=== PATIENT | female | born 1975 | race Caucasian/White ===

== ENCOUNTER 2016-01-18 15:16 | Inpatient (IN) | payer OTHER ==
[2016-01-18] MEDS ORDERED: PNEUMOC 13-VAL CONJ-DIP CRM/PF 0.5 ML DISP.SYRIN IM ONE (15:30)
--- NOTE | 2016-01-18 16:18 | HP ---
[facility] Rehab Assess/Revision - Admission History Admitted to Rehab from: [facility] [place] Date of Admission to Rehab: 01/18/16 - Vital signs Vital Signs: Vital Signs Period Temp Pulse Resp BP Sys/Crow Pulse Ox Last 24 Hr 98 F 83 - Findings Detox History & Physical reviewed: Yes Concur with findings: Yes Comments/Additional Findings: transferred from detox to rehab admission as per protocol
[2016-01-18] MEDS ORDERED: ACETAMINOPHEN 325 MG TABLET (FP) PO PRN (20:55)
[2016-01-18] MEDS ORDERED: ALBUTEROL SO4 6.7 GM HFA INHALER IH PRN (20:55)
[2016-01-18] MEDS ORDERED: guaiFENesin/D-METHORPHAN HB 10 ML UNIT-DOSE CUPS PO PRN (20:55)
[2016-01-18] MEDS ORDERED: MENTHOL/PHENOL 1 EACH UD MM PRN (20:55)
[2016-01-18] MEDS ORDERED: MAG HYDROX/AL HYDROX/SIMETH 30 ML UNIT-DOSE CUP PO PRN (20:55)
[2016-01-18] MEDS ORDERED: LOPERAMIDE HCL 2 MG CAPSULE PO PRN (20:55)
[2016-01-18] MEDS ORDERED: MAGNESIUM CITRATE 300 ML BOTTLE PO PRN (20:55)
[2016-01-18] MEDS ORDERED: P-EPHED 60MG/TRIPROLIDI 2.5MG TABLET PO PRN (20:55)
[2016-01-18] MEDS ORDERED: MAGNESIUM HYDROX 2400MG/30ML ORAL SUSPENSION 30 ML CUP PO PRN (20:55)
[2016-01-18] MEDS: traZODone HCL 50 MG TABLET (FP) PO SCH (21:47)
[2016-01-18] MEDS: ARIPiprazole 5 MG TABLET (FP) PO SCH (21:47)
[2016-01-18] MEDS: QUEtiapine FUMARATE 200 MG TABLET PO SCH (21:48)
[2016-01-18] MEDS ORDERED: SULFAMETHOXAZOLE/TRIMETHOPRIM 800MG/160MG D.S. TABLET PO SCH (22:00)
[2016-01-18] MEDS: SULFAMETHOXAZOLE/TRIMETHOPRIM 800MG/160MG D.S. TABLET PO SCH (22:32)
[2016-01-18] MEDS: THIAMINE HCL 100 MG TABLET (FP) PO SCH (22:38)
[2016-01-19] MEDS ORDERED: METHADONE HCL 10 MG TABLET PO SCH (06:00)
[2016-01-19] MEDS: METHADONE 80 MG, METHADONE 20 MG PO SCH (06:19)
[2016-01-19] MEDS ORDERED: METHADONE HCL 10 MG TABLET ONE (06:19)
[2016-01-19] MEDS ORDERED: METHADONE HCL 40 MG DISPERSABLE TABLET ONE (06:19)
[2016-01-19] MEDS: QUEtiapine FUMARATE 200 MG TABLET PO SCH ×2 (10:14→21:29)
[2016-01-19] MEDS: PRENATAL VITAMINS W/ FOLIC ACID TABLET (FP) PO SCH (10:14)
[2016-01-19] MEDS: SULFAMETHOXAZOLE/TRIMETHOPRIM 800MG/160MG D.S. TABLET PO SCH ×2 (10:14→21:29)
[2016-01-19] MEDS ORDERED: SODIUM PHOSPHATE/NA BIPHOS 133 ML ENEMA PR ONE (11:26)
[2016-01-19] MEDS ORDERED: INFLUENZA VACCINE 45 MCG/0.5 ML (MDV 16-17) IM ONE (12:00)
[2016-01-19] MEDS ORDERED: PNEUMOCOCCAL 23 VACCINE 0.5 ML VIAL IM ONE (12:00)
[2016-01-19] MEDS: DOCUSATE SODIUM 100 MG CAPSULE (FP) PO SCH ×2 (13:09→21:29)
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
[2016-01-19] MEDS: CYCLOBENZAPRINE HCL 10 MG TABLET (FP) PO PRN (15:52)
[2016-01-19] MEDS: hydrOXYzine PAMOATE 50 MG CAPSULE (FP) PO PRN (15:52)
[2016-01-19] MEDS: THIAMINE HCL 100 MG TABLET (FP) PO SCH (21:29)
[2016-01-19] MEDS: traZODone HCL 50 MG TABLET (FP) PO SCH (21:29)
[2016-01-19] MEDS: ARIPiprazole 5 MG TABLET (FP) PO SCH (21:29)
[2016-01-20] MEDS ORDERED: METHADONE HCL 10 MG TABLET ONE (03:12)
[2016-01-20] MEDS ORDERED: METHADONE HCL 40 MG DISPERSABLE TABLET ONE (03:12)
[2016-01-20] MEDS: METHADONE 80 MG, METHADONE 20 MG PO SCH (06:24)
[2016-01-20] MEDS: DOCUSATE SODIUM 100 MG CAPSULE (FP) PO SCH ×3 (06:25→21:18)
[2016-01-20] MEDS: IBUPROFEN 400 MG TABLET (FP) PO PRN (08:44)
[2016-01-20] MEDS: CYCLOBENZAPRINE HCL 10 MG TABLET (FP) PO PRN ×2 (08:44→21:20)
[2016-01-20] MEDS: PRENATAL VITAMINS W/ FOLIC ACID TABLET (FP) PO SCH (10:01)
[2016-01-20] MEDS: QUEtiapine FUMARATE 200 MG TABLET PO SCH ×2 (10:01→21:18)
[2016-01-20] MEDS: SULFAMETHOXAZOLE/TRIMETHOPRIM 800MG/160MG D.S. TABLET PO SCH ×2 (10:02→21:18)
[2016-01-20] MEDS: hydrOXYzine PAMOATE 50 MG CAPSULE (FP) PO PRN (10:03)
--- NOTE | 2016-01-20 11:44 | PN ---
[facility] Progress Note Note: pain over the left shoulder at the site of flu injection,no erythema,ice pack, motrin and flexeril prn
[2016-01-20] MEDS: traZODone HCL 50 MG TABLET (FP) PO SCH (21:18)
[2016-01-20] MEDS: THIAMINE HCL 100 MG TABLET (FP) PO SCH (21:18)
[2016-01-20] MEDS: ARIPiprazole 5 MG TABLET (FP) PO SCH (21:19)
[2016-01-21] MEDS ORDERED: METHADONE HCL 40 MG DISPERSABLE TABLET ONE (05:57)
[2016-01-21] MEDS ORDERED: METHADONE HCL 10 MG TABLET ONE (05:57)
[2016-01-21] MEDS: DOCUSATE SODIUM 100 MG CAPSULE (FP) PO SCH ×3 (06:04→21:18)
[2016-01-21] MEDS: METHADONE 80 MG, METHADONE 20 MG PO SCH (06:04)
[2016-01-21] MEDS: QUEtiapine FUMARATE 200 MG TABLET PO SCH ×2 (10:13→21:18)
[2016-01-21] MEDS: PRENATAL VITAMINS W/ FOLIC ACID TABLET (FP) PO SCH (10:13)
[2016-01-21] MEDS: SULFAMETHOXAZOLE/TRIMETHOPRIM 800MG/160MG D.S. TABLET PO SCH ×2 (10:13→21:18)
[2016-01-21] MEDS: hydrOXYzine PAMOATE 50 MG CAPSULE (FP) PO PRN (10:15)
[2016-01-21] MEDS: CYCLOBENZAPRINE HCL 10 MG TABLET (FP) PO PRN (10:15)
[2016-01-21] MEDS: NICOTINE 14 MG/24 HOURS TOPICAL PATCH TD PRN (10:17)
[2016-01-21] MEDS: IBUPROFEN 400 MG TABLET (FP) PO PRN (13:13)
[2016-01-21] MEDS: traZODone HCL 50 MG TABLET (FP) PO SCH (21:18)
[2016-01-21] MEDS: THIAMINE HCL 100 MG TABLET (FP) PO SCH (21:18)
[2016-01-21] MEDS: ARIPiprazole 5 MG TABLET (FP) PO SCH (21:19)
[2016-01-22] MEDS ORDERED: METHADONE HCL 10 MG TABLET ONE (03:15)
[2016-01-22] MEDS ORDERED: METHADONE HCL 40 MG DISPERSABLE TABLET ONE (03:15)
[2016-01-22] MEDS: METHADONE 80 MG, METHADONE 20 MG PO SCH (06:36)
[2016-01-22] MEDS: DOCUSATE SODIUM 100 MG CAPSULE (FP) PO SCH ×3 (06:37→21:15)
[2016-01-22] MEDS: QUEtiapine FUMARATE 200 MG TABLET PO SCH ×2 (10:00→21:15)
[2016-01-22] MEDS: PRENATAL VITAMINS W/ FOLIC ACID TABLET (FP) PO SCH (10:00)
[2016-01-22] MEDS: SULFAMETHOXAZOLE/TRIMETHOPRIM 800MG/160MG D.S. TABLET PO SCH ×2 (10:00→21:15)
[2016-01-22] MEDS ORDERED: SODIUM PHOSPHATE/NA BIPHOS 133 ML ENEMA PR ONE (13:00)
[2016-01-22] MEDS: POLYETHYLENE GLYCOL 3350 119 GM BTL PO SCH (15:10)
[2016-01-22] MEDS: traZODone HCL 50 MG TABLET (FP) PO SCH (21:14)
[2016-01-22] MEDS: hydrOXYzine PAMOATE 50 MG CAPSULE (FP) PO PRN (21:15)
[2016-01-22] MEDS: THIAMINE HCL 100 MG TABLET (FP) PO SCH (21:15)
[2016-01-22] MEDS: CYCLOBENZAPRINE HCL 10 MG TABLET (FP) PO PRN (21:15)
[2016-01-22] MEDS: ARIPiprazole 5 MG TABLET (FP) PO SCH (21:15)
[2016-01-23] MEDS ORDERED: METHADONE HCL 10 MG TABLET ONE (03:21)
[2016-01-23] MEDS ORDERED: METHADONE HCL 40 MG DISPERSABLE TABLET ONE (03:21)
[2016-01-23] MEDS: METHADONE 80 MG, METHADONE 20 MG PO SCH (06:23)
[2016-01-23] MEDS: DOCUSATE SODIUM 100 MG CAPSULE (FP) PO SCH ×3 (06:24→21:08)
[2016-01-23] MEDS: CYCLOBENZAPRINE HCL 10 MG TABLET (FP) PO PRN (08:27)
[2016-01-23] MEDS: hydrOXYzine PAMOATE 50 MG CAPSULE (FP) PO PRN (08:27)
[2016-01-23] MEDS: SULFAMETHOXAZOLE/TRIMETHOPRIM 800MG/160MG D.S. TABLET PO SCH ×2 (10:01→21:08)
[2016-01-23] MEDS: PRENATAL VITAMINS W/ FOLIC ACID TABLET (FP) PO SCH (10:01)
[2016-01-23] MEDS: QUEtiapine FUMARATE 200 MG TABLET PO SCH ×2 (10:01→21:08)
[2016-01-23] MEDS: POLYETHYLENE GLYCOL 3350 119 GM BTL PO SCH (10:01)
[2016-01-23] MEDS: ARIPiprazole 5 MG TABLET (FP) PO SCH (21:07)
[2016-01-23] MEDS: THIAMINE HCL 100 MG TABLET (FP) PO SCH (21:08)
[2016-01-23] MEDS: traZODone HCL 50 MG TABLET (FP) PO SCH (21:08)
[2016-01-24] MEDS ORDERED: METHADONE HCL 10 MG TABLET ONE (03:13)
[2016-01-24] MEDS ORDERED: METHADONE HCL 40 MG DISPERSABLE TABLET ONE (03:14)
[2016-01-24] MEDS: METHADONE 80 MG, METHADONE 20 MG PO SCH (06:11)
[2016-01-24] MEDS: DOCUSATE SODIUM 100 MG CAPSULE (FP) PO SCH ×3 (06:12→21:24)
[2016-01-24] MEDS: QUEtiapine FUMARATE 200 MG TABLET PO SCH ×2 (10:13→21:23)
[2016-01-24] MEDS: POLYETHYLENE GLYCOL 3350 119 GM BTL PO SCH (10:13)
[2016-01-24] MEDS: SULFAMETHOXAZOLE/TRIMETHOPRIM 800MG/160MG D.S. TABLET PO SCH ×2 (10:13→21:23)
[2016-01-24] MEDS: PRENATAL VITAMINS W/ FOLIC ACID TABLET (FP) PO SCH (10:13)
[2016-01-24] MEDS: NICOTINE 14 MG/24 HOURS TOPICAL PATCH TD PRN (10:17)
[2016-01-24] MEDS: SODIUM PHOSPHATE/NA BIPHOS 133 ML ENEMA PR PRN (13:17)
[2016-01-24] MEDS: THIAMINE HCL 100 MG TABLET (FP) PO SCH (21:23)
[2016-01-24] MEDS: traZODone HCL 50 MG TABLET (FP) PO SCH (21:24)
[2016-01-24] MEDS: ARIPiprazole 5 MG TABLET (FP) PO SCH (21:25)
[2016-01-25] MEDS ORDERED: METHADONE HCL 40 MG DISPERSABLE TABLET PO SCH (06:15)
[2016-01-25] MEDS ORDERED: METHADONE HCL 10 MG TABLET ONE (06:23)
[2016-01-25] MEDS ORDERED: METHADONE HCL 40 MG DISPERSABLE TABLET ONE (06:24)
[2016-01-25] MEDS: METHADONE 80 MG, METHADONE 20 MG PO SCH (06:25)
[2016-01-25] MEDS: DOCUSATE SODIUM 100 MG CAPSULE (FP) PO SCH ×3 (06:28→21:16)
[2016-01-25] MEDS: PRENATAL VITAMINS W/ FOLIC ACID TABLET (FP) PO SCH (09:52)
[2016-01-25] MEDS: QUEtiapine FUMARATE 200 MG TABLET PO SCH ×2 (09:52→21:16)
[2016-01-25] MEDS: POLYETHYLENE GLYCOL 3350 119 GM BTL PO SCH (09:52)
[2016-01-25] MEDS: SULFAMETHOXAZOLE/TRIMETHOPRIM 800MG/160MG D.S. TABLET PO SCH ×2 (09:52→21:17)
[2016-01-25] MEDS: NICOTINE 14 MG/24 HOURS TOPICAL PATCH TD PRN (09:52)
[2016-01-25] MEDS: THIAMINE HCL 100 MG TABLET (FP) PO SCH (21:15)
[2016-01-25] MEDS: traZODone HCL 50 MG TABLET (FP) PO SCH (21:16)
[2016-01-25] MEDS: ARIPiprazole 5 MG TABLET (FP) PO SCH (21:17)
[2016-01-25] MEDS: SODIUM PHOSPHATE/NA BIPHOS 133 ML ENEMA PR PRN (22:22)
[2016-01-26] MEDS ORDERED: METHADONE HCL 10 MG TABLET ONE (03:19)
[2016-01-26] MEDS ORDERED: METHADONE HCL 40 MG DISPERSABLE TABLET ONE (03:19)
[2016-01-26] MEDS: METHADONE 80 MG, METHADONE 20 MG PO SCH (06:25)
[2016-01-26] MEDS: DOCUSATE SODIUM 100 MG CAPSULE (FP) PO SCH ×3 (06:26→21:16)
[2016-01-26] MEDS: POLYETHYLENE GLYCOL 3350 119 GM BTL PO SCH (10:34)
[2016-01-26] MEDS: PRENATAL VITAMINS W/ FOLIC ACID TABLET (FP) PO SCH (10:35)
[2016-01-26] MEDS: QUEtiapine FUMARATE 200 MG TABLET PO SCH ×2 (10:35→21:16)
[2016-01-26] MEDS: NICOTINE 14 MG/24 HOURS TOPICAL PATCH TD PRN (12:43)
[2016-01-26] MEDS: SODIUM PHOSPHATE/NA BIPHOS 133 ML ENEMA PR PRN (13:35)
[2016-01-26] MEDS: MAGNESIUM CITRATE 300 ML BOTTLE PO SCH (15:15)
[2016-01-26] MEDS: traZODone HCL 50 MG TABLET (FP) PO SCH (21:16)
[2016-01-26] MEDS: THIAMINE HCL 100 MG TABLET (FP) PO SCH (21:16)
[2016-01-26] MEDS: ARIPiprazole 5 MG TABLET (FP) PO SCH (21:17)
[2016-01-26] MEDS: NICOTINE POLACRILEX 2 MG GUM BUC PRN (21:17)
[2016-01-27] MEDS ORDERED: METHADONE HCL 40 MG DISPERSABLE TABLET ONE (03:29)
[2016-01-27] MEDS ORDERED: METHADONE HCL 10 MG TABLET ONE (03:29)
[2016-01-27] MEDS: METHADONE 80 MG, METHADONE 20 MG PO SCH (06:14)
[2016-01-27] MEDS: DOCUSATE SODIUM 100 MG CAPSULE (FP) PO SCH ×3 (06:15→21:15)
[2016-01-27] MEDS: NICOTINE 14 MG/24 HOURS TOPICAL PATCH TD PRN (10:08)
[2016-01-27] MEDS: PRENATAL VITAMINS W/ FOLIC ACID TABLET (FP) PO SCH (10:09)
[2016-01-27] MEDS: QUEtiapine FUMARATE 200 MG TABLET PO SCH ×2 (10:09→21:15)
[2016-01-27] MEDS: POLYETHYLENE GLYCOL 3350 119 GM BTL PO SCH (10:10)
[2016-01-27] MEDS: MAGNESIUM CITRATE 300 ML BOTTLE PO SCH (10:10)
[2016-01-27] MEDS: hydrOXYzine PAMOATE 50 MG CAPSULE (FP) PO PRN (10:13)
[2016-01-27] MEDS: LIDOCAINE 5% TOPICAL PATCH TP SCH (15:54)
[2016-01-27] MEDS: THIAMINE HCL 100 MG TABLET (FP) PO SCH (21:15)
[2016-01-27] MEDS: traZODone HCL 50 MG TABLET (FP) PO SCH (21:15)
[2016-01-27] MEDS: ARIPiprazole 5 MG TABLET (FP) PO SCH (21:16)
[2016-01-28] MEDS ORDERED: METHADONE HCL 10 MG TABLET ONE (03:29)
[2016-01-28] MEDS ORDERED: METHADONE HCL 40 MG DISPERSABLE TABLET ONE (03:29)
[2016-01-28] MEDS: METHADONE 80 MG, METHADONE 20 MG PO SCH (06:21)
[2016-01-28] MEDS: DOCUSATE SODIUM 100 MG CAPSULE (FP) PO SCH ×3 (06:22→21:27)
[2016-01-28] MEDS: MAGNESIUM CITRATE 300 ML BOTTLE PO SCH (09:59)
[2016-01-28] MEDS: POLYETHYLENE GLYCOL 3350 119 GM BTL PO SCH (09:59)
[2016-01-28] MEDS: QUEtiapine FUMARATE 200 MG TABLET PO SCH ×2 (10:00→21:27)
[2016-01-28] MEDS: LIDOCAINE 5% TOPICAL PATCH TP SCH (10:00)
[2016-01-28] MEDS: PRENATAL VITAMINS W/ FOLIC ACID TABLET (FP) PO SCH (10:00)
[2016-01-28] MEDS: NICOTINE POLACRILEX 2 MG GUM BUC PRN (10:02)
[2016-01-28] MEDS: NICOTINE 7 MG/24 HOURS TOPICAL PATCH TD PRN (10:04)
[2016-01-28] MEDS: traZODone HCL 50 MG TABLET (FP) PO SCH (21:26)
[2016-01-28] MEDS: THIAMINE HCL 100 MG TABLET (FP) PO SCH (21:27)
[2016-01-28] MEDS: ARIPiprazole 5 MG TABLET (FP) PO SCH (21:27)
[2016-01-29] MEDS ORDERED: METHADONE HCL 10 MG TABLET ONE (05:59)
[2016-01-29] MEDS ORDERED: METHADONE HCL 40 MG DISPERSABLE TABLET ONE (06:00)
[2016-01-29] MEDS: METHADONE 80 MG, METHADONE 20 MG PO SCH (06:22)
[2016-01-29] MEDS: DOCUSATE SODIUM 100 MG CAPSULE (FP) PO SCH ×3 (06:22→21:32)
[2016-01-29] MEDS: QUEtiapine FUMARATE 200 MG TABLET PO SCH ×2 (09:38→21:32)
[2016-01-29] MEDS: PRENATAL VITAMINS W/ FOLIC ACID TABLET (FP) PO SCH (09:38)
[2016-01-29] MEDS: LIDOCAINE 5% TOPICAL PATCH TP SCH (09:39)
[2016-01-29] MEDS: POLYETHYLENE GLYCOL 3350 119 GM BTL PO SCH (09:40)
[2016-01-29] MEDS: MAGNESIUM CITRATE 300 ML BOTTLE PO SCH (09:40)
[2016-01-29] MEDS: NICOTINE 7 MG/24 HOURS TOPICAL PATCH TD PRN (10:31)
[2016-01-29] MEDS: NICOTINE POLACRILEX 2 MG GUM BUC PRN ×2 (10:31→12:40)
[2016-01-29] MEDS: hydrOXYzine PAMOATE 50 MG CAPSULE (FP) PO PRN (18:39)
[2016-01-29] MEDS: traZODone HCL 50 MG TABLET (FP) PO SCH (21:32)
[2016-01-29] MEDS: THIAMINE HCL 100 MG TABLET (FP) PO SCH (21:32)
[2016-01-29] MEDS: ARIPiprazole 5 MG TABLET (FP) PO SCH (21:32)
[2016-01-30] MEDS ORDERED: METHADONE HCL 40 MG DISPERSABLE TABLET ONE (06:09)
[2016-01-30] MEDS ORDERED: METHADONE HCL 10 MG TABLET ONE (06:09)
[2016-01-30] MEDS: IBUPROFEN 400 MG TABLET (FP) PO PRN (06:10)
[2016-01-30] MEDS: METHADONE 80 MG, METHADONE 20 MG PO SCH (06:10)
[2016-01-30] MEDS: DOCUSATE SODIUM 100 MG CAPSULE (FP) PO SCH ×3 (06:10→21:40)
[2016-01-30] MEDS: hydrOXYzine PAMOATE 50 MG CAPSULE (FP) PO PRN (08:45)
[2016-01-30] MEDS: PRENATAL VITAMINS W/ FOLIC ACID TABLET (FP) PO SCH (09:59)
[2016-01-30] MEDS: QUEtiapine FUMARATE 200 MG TABLET PO SCH ×2 (09:59→21:40)
[2016-01-30] MEDS: NICOTINE 7 MG/24 HOURS TOPICAL PATCH TD PRN (10:00)
[2016-01-30] MEDS: MAGNESIUM CITRATE 300 ML BOTTLE PO SCH (10:01)
[2016-01-30] MEDS: LIDOCAINE 5% TOPICAL PATCH TP SCH (10:01)
[2016-01-30] MEDS: POLYETHYLENE GLYCOL 3350 119 GM BTL PO SCH (10:02)
[2016-01-30] MEDS: NICOTINE POLACRILEX 2 MG GUM BUC PRN (13:09)
[2016-01-30] MEDS: THIAMINE HCL 100 MG TABLET (FP) PO SCH (21:40)
[2016-01-30] MEDS: ARIPiprazole 5 MG TABLET (FP) PO SCH (21:40)
[2016-01-30] MEDS: traZODone HCL 50 MG TABLET (FP) PO SCH (21:40)
[2016-01-31] MEDS ORDERED: METHADONE HCL 10 MG TABLET ONE (03:08)
[2016-01-31] MEDS ORDERED: METHADONE HCL 40 MG DISPERSABLE TABLET ONE (03:08)
[2016-01-31] MEDS: METHADONE 80 MG, METHADONE 20 MG PO SCH (06:08)
[2016-01-31] MEDS: DOCUSATE SODIUM 100 MG CAPSULE (FP) PO SCH ×3 (06:09→21:18)
[2016-01-31] MEDS: MAGNESIUM CITRATE 300 ML BOTTLE PO SCH (10:04)
[2016-01-31] MEDS: LIDOCAINE 5% TOPICAL PATCH TP SCH (10:05)
[2016-01-31] MEDS: POLYETHYLENE GLYCOL 3350 119 GM BTL PO SCH (10:06)
[2016-01-31] MEDS: QUEtiapine FUMARATE 200 MG TABLET PO SCH ×2 (10:07→21:17)
[2016-01-31] MEDS: PRENATAL VITAMINS W/ FOLIC ACID TABLET (FP) PO SCH (10:07)
[2016-01-31] MEDS: hydrOXYzine PAMOATE 50 MG CAPSULE (FP) PO PRN (17:40)
[2016-01-31] MEDS: ARIPiprazole 5 MG TABLET (FP) PO SCH (21:17)
[2016-01-31] MEDS: THIAMINE HCL 100 MG TABLET (FP) PO SCH (21:17)
[2016-01-31] MEDS: traZODone HCL 50 MG TABLET (FP) PO SCH (21:17)
[2016-02-01] MEDS ORDERED: METHADONE HCL 40 MG DISPERSABLE TABLET PO SCH (06:00)
[2016-02-01] MEDS ORDERED: METHADONE HCL 10 MG TABLET ONE (06:05)
[2016-02-01] MEDS ORDERED: METHADONE HCL 40 MG DISPERSABLE TABLET ONE (06:06)
[2016-02-01] MEDS: METHADONE 80 MG, METHADONE 30 MG PO SCH (06:18)
[2016-02-01] MEDS: DOCUSATE SODIUM 100 MG CAPSULE (FP) PO SCH ×3 (06:19→21:04)
[2016-02-01] MEDS: MAGNESIUM CITRATE 300 ML BOTTLE PO SCH (10:19)
[2016-02-01] MEDS: LIDOCAINE 5% TOPICAL PATCH TP SCH (10:19)
[2016-02-01] MEDS: POLYETHYLENE GLYCOL 3350 119 GM BTL PO SCH (10:19)
[2016-02-01] MEDS: PRENATAL VITAMINS W/ FOLIC ACID TABLET (FP) PO SCH (10:20)
[2016-02-01] MEDS: QUEtiapine FUMARATE 200 MG TABLET PO SCH ×2 (10:20→21:04)
[2016-02-01] MEDS: traZODone HCL 50 MG TABLET (FP) PO SCH (21:04)
[2016-02-01] MEDS: ARIPiprazole 5 MG TABLET (FP) PO SCH (21:04)
[2016-02-01] MEDS: THIAMINE HCL 100 MG TABLET (FP) PO SCH (21:04)
[2016-02-01] MEDS: diphenhydrAMINE HCL 50 MG CAPSULE PO PRN (21:59)
[2016-02-01] MEDS: NICOTINE POLACRILEX 2 MG GUM BUC PRN (22:01)
[2016-02-02] MEDS ORDERED: METHADONE HCL 10 MG TABLET ONE (03:21)
[2016-02-02] MEDS ORDERED: METHADONE HCL 40 MG DISPERSABLE TABLET ONE (03:21)
[2016-02-02] MEDS: METHADONE 80 MG, METHADONE 30 MG PO SCH (06:32)
[2016-02-02] MEDS: DOCUSATE SODIUM 100 MG CAPSULE (FP) PO SCH ×3 (06:33→21:28)
[2016-02-02] MEDS: LIDOCAINE 5% TOPICAL PATCH TP SCH (09:56)
[2016-02-02] MEDS: MAGNESIUM CITRATE 300 ML BOTTLE PO SCH (09:57)
[2016-02-02] MEDS: POLYETHYLENE GLYCOL 3350 119 GM BTL PO SCH (09:57)
[2016-02-02] MEDS: QUEtiapine FUMARATE 200 MG TABLET PO SCH ×2 (09:58→21:28)
[2016-02-02] MEDS: PRENATAL VITAMINS W/ FOLIC ACID TABLET (FP) PO SCH (09:58)
[2016-02-02] MEDS: hydrOXYzine PAMOATE 50 MG CAPSULE (FP) PO PRN (09:59)
--- NOTE | 2016-02-02 13:40 | PN ---
Psychiatric Progress Note Vital Signs: Vital Signs Period Temp Pulse Resp BP Sys/Crow Pulse Ox Last 24 Hr 98.1 F 99 18-18 109/72 Date of Session: 02/02/16 Chief Complaint:: "I feel depressed" HPI: Patient addressing Alcohol, Cocaine and Sedative Dependence comorbid with Nicotine Dependence, Opoid Dependence on Agonist Therapy and Bipolar II Disorder ROS: Significant for history of Asthma, Sinus Tachycardia S/P cardiac ablation, Drug-induce seizure, GERD, Hep C and S/P X2. Smokes cigarettes 1ppd Current Medications: Active Medications Generic Name Dose Route Start Last Admin Trade Name Freq PRN Reason Stop Dose Admin Acetaminophen 650 mg 01/18/16 20:55 Tylenol - PO Q4H PRN FEVER OR PAIN Al Hydroxide/Mg Hydroxide 30 ml 01/18/16 20:55 Mylanta Oral Suspension - PO Q6H PRN DYSPEPSIA Albuterol Sulfate 2 puff 01/18/16 20:55 Ventolin Hfa Inhaler - IH Q4H PRN ASTHMA Aripiprazole 5 mg 01/18/16 22:00 02/01/16 21:04 Abilify PO 5 mg HS DEIRDRE Administration Diphenhydramine HCl 50 mg 01/18/16 20:55 02/01/16 21:59 Benadryl - PO 50 mg HSMR1 PRN Administration FOR ITCHING Docusate Sodium 100 mg 01/19/16 14:00 02/02/16 13:06 Colace - PO 100 mg TID DEIRDRE Administration Eucalyptus/Menthol/Phenol/Sorbitol 1 each 01/18/16 20:55 Cepastat Lozenge - MM Q4H PRN SORE THROAT Guaifenesin 10 ml 01/18/16 20:55 Robitussin Dm - PO Q6H PRN COUGH Hydroxyzine Pamoate 50 mg 01/19/16 11:28 02/02/16 09:59 Vistaril - PO 50 mg Q4H PRN Administration ANXIETY Ibuprofen 400 mg 01/18/16 20:55 01/30/16 06:10 Motrin - PO 400 mg Q6H PRN Administration PAIN Lidocaine 1 patch 01/27/16 15:45 02/02/16 09:56 Lidoderm Patch - TP 1 patch DAILY DEIRDRE Administration Loperamide HCl 4 mg 01/18/16 20:55 Imodium - PO Q6H PRN DIARRHEA Magnesium Citrate 300 ml 01/26/16 14:30 02/02/16 09:57 Citroma - PO 02/02/16 14:29 Not Given DAILY DEIRDRE Magnesium Hydroxide 30 ml 01/18/16 20:55 01/22/16 10:02 Milk Of Magnesia - PO 30 ml DAILY PRN Administration CONSTIPATION Methadone HCl 80 mg/ Methadone 110 mg 02/01/16 06:00 02/02/16 06:32 HCl 30 mg PO 02/07/16 05:59 110 mg DAILY@0600 DEIRDRE Administration Nicotine 7 mg 01/27/16 15:34 01/30/16 10:00 Nicoderm Patch - TD 7 mg DAILY PRN Administration WITHDRAWAL(CONT SUBST) Nicotine Polacrilex 2 mg 01/18/16 20:55 02/01/16 22:01 Nicorette Gum - BUC 2 mg Q2H PRN Administration NICOTINE REPLACEMENT RX Polyethylene Glycol 17 gm 01/22/16 13:00 02/02/16 09:57 Miralax (For Daily Use) - PO 17 gm DAILY DEIRDRE Administration Multivit/Folic Acid/Iron 1 tab 01/19/16 10:00 02/02/16 09:58 Vitamins (Sjr) - PO 1 tab DAILY DEIRDRE Administration Pseudoephedrine/Triprolidine 1 combo 01/18/16 20:55 Actifed - PO TID PRN NASAL CONGESTION Quetiapine Fumarate 200 mg 01/18/16 22:00 02/02/16 09:58 Seroquel - PO 200 mg BID DEIRDRE Administration Sodium Phosphate 133 ml 01/24/16 12:43 01/26/16 13:35 Fleet Adult Rectal Enema - [place] 133 ml DAILY PRN Administration CONSTIPATION Thiamine HCl 100 mg 01/18/16 22:00 02/01/16 21:04 Vitamin B1 - PO 100 mg HS DEIRDRE Administration Trazodone HCl 150 mg 01/18/16 22:00 02/01/16 21:04 Desyrel - PO 150 mg HS DEIRDRE Administration Medication(s) Change(s): Start Celexa 10 mg po daily Current Side Effect: No Lab tests ordered: No Lab tests reviewed: Yes Provider note:: Reports that she has been feeling depressed. Told documentation writer that she is withdrawn, isolative with lack of energy and motivation. She also feels hopeless, worthless and sleeps poorly. However, denies feeling suicidal, homicidal. Choices of antidepressant medication were discussed with patient. She opted to take Celexa to which she responded positively in the past Total face to face time:: 30 Mental Status Exam - Mental Status Exam Alert and Oriented to: Time, Place, Person Cognitive Function: Fair Patient Appearance: Well Groomed Mood: Depressed Affect: Constricted Patient Behavior: Cooperative Speech Pattern: Clear Voice Loudness: Normal Thought Process: Intact Thought Disorder: Not Present Hallucinations: Denies Suicidal Ideation: Denies Homicidal Ideation: Denies Insight/Judgement: Fair Sleep: Poorly Appetite: Good Muscle strength/Tone: Normal Gait/Station: Normal Psychiatric Treatment Plan - Problem List (1) Alcohol dependence with uncomplicated withdrawal Current Visit: Yes (2) Cocaine dependence, uncomplicated Current Visit: Yes (3) Sedative, hypnotic or anxiolytic dependence with withdrawal, uncomplicated Current Visit: Yes (4) Opioid dependence on agonist therapy Current Visit: Yes (5) Nicotine dependence Current Visit: No Qualifiers: Nicotine product type: cigarettes Substance use status: uncomplicated Qualified Code(s): F17.210 - Nicotine dependence, cigarettes, uncomplicated (6) Bipolar II disorder Current Visit: Yes (7) Asthma Current Visit: Yes (8) GERD (gastroesophageal reflux disease) Current Visit: Yes (9) Hepatitis C Current Visit: Yes Initial treatment plan: Start Celexa 10 mg po daily
[2016-02-02] MEDS: IBUPROFEN 400 MG TABLET (FP) PO PRN (14:49)
[2016-02-02] MEDS: NICOTINE 7 MG/24 HOURS TOPICAL PATCH TD PRN (14:50)
[2016-02-02] MEDS: diphenhydrAMINE HCL 50 MG CAPSULE PO PRN (21:28)
[2016-02-02] MEDS: traZODone HCL 50 MG TABLET (FP) PO SCH (21:28)
[2016-02-02] MEDS: THIAMINE HCL 100 MG TABLET (FP) PO SCH (21:28)
[2016-02-02] MEDS: ARIPiprazole 5 MG TABLET (FP) PO SCH (21:28)
[2016-02-03] MEDS ORDERED: METHADONE HCL 10 MG TABLET ONE (03:06)
[2016-02-03] MEDS ORDERED: METHADONE HCL 40 MG DISPERSABLE TABLET ONE (03:06)
[2016-02-03] MEDS: METHADONE 80 MG, METHADONE 30 MG PO SCH (06:31)
[2016-02-03] MEDS: DOCUSATE SODIUM 100 MG CAPSULE (FP) PO SCH ×3 (06:31→21:30)
[2016-02-03] MEDS: LIDOCAINE 5% TOPICAL PATCH TP SCH (09:41)
[2016-02-03] MEDS: NICOTINE 7 MG/24 HOURS TOPICAL PATCH TD SCH (09:42)
[2016-02-03] MEDS: hydrOXYzine PAMOATE 50 MG CAPSULE (FP) PO PRN ×2 (09:43→18:34)
[2016-02-03] MEDS: CITALOPRAM HYDROBROMIDE 10 MG TABLET (FP) PO SCH (09:43)
[2016-02-03] MEDS: QUEtiapine FUMARATE 200 MG TABLET PO SCH ×2 (09:43→21:30)
[2016-02-03] MEDS: POLYETHYLENE GLYCOL 3350 119 GM BTL PO SCH (09:44)
[2016-02-03] MEDS: PRENATAL VITAMINS W/ FOLIC ACID TABLET (FP) PO SCH (09:44)
[2016-02-03] MEDS: NICOTINE POLACRILEX 2 MG GUM BUC PRN ×2 (13:04→21:31)
[2016-02-03] MEDS: MAGNESIUM CITRATE 300 ML BOTTLE PO PRN (18:35)
[2016-02-03] MEDS: THIAMINE HCL 100 MG TABLET (FP) PO SCH (21:29)
[2016-02-03] MEDS: ARIPiprazole 5 MG TABLET (FP) PO SCH (21:30)
[2016-02-03] MEDS: traZODone HCL 50 MG TABLET (FP) PO SCH (21:30)
[2016-02-03] MEDS: diphenhydrAMINE HCL 50 MG CAPSULE PO PRN (21:30)
[2016-02-04] MEDS ORDERED: METHADONE HCL 10 MG TABLET ONE (05:47)
[2016-02-04] MEDS ORDERED: METHADONE HCL 40 MG DISPERSABLE TABLET ONE (05:48)
[2016-02-04] MEDS: DOCUSATE SODIUM 100 MG CAPSULE (FP) PO SCH ×3 (06:19→21:15)
[2016-02-04] MEDS: METHADONE 80 MG, METHADONE 30 MG PO SCH (06:20)
[2016-02-04] MEDS: POLYETHYLENE GLYCOL 3350 119 GM BTL PO SCH (10:14)
[2016-02-04] MEDS: NICOTINE 7 MG/24 HOURS TOPICAL PATCH TD SCH (10:14)
[2016-02-04] MEDS: CITALOPRAM HYDROBROMIDE 10 MG TABLET (FP) PO SCH (10:15)
[2016-02-04] MEDS: QUEtiapine FUMARATE 200 MG TABLET PO SCH ×2 (10:15→21:15)
[2016-02-04] MEDS: PRENATAL VITAMINS W/ FOLIC ACID TABLET (FP) PO SCH (10:15)
[2016-02-04] MEDS: hydrOXYzine PAMOATE 50 MG CAPSULE (FP) PO PRN ×2 (10:16→17:43)
[2016-02-04] MEDS: LIDOCAINE 5% TOPICAL PATCH TP SCH (10:16)
[2016-02-04] MEDS: NICOTINE POLACRILEX 2 MG GUM BUC PRN ×3 (10:18→21:16)
[2016-02-04] MEDS: ARIPiprazole 5 MG TABLET (FP) PO SCH (21:15)
[2016-02-04] MEDS: traZODone HCL 50 MG TABLET (FP) PO SCH (21:15)
[2016-02-04] MEDS: THIAMINE HCL 100 MG TABLET (FP) PO SCH (21:15)
[2016-02-05] MEDS ORDERED: METHADONE HCL 40 MG DISPERSABLE TABLET ONE (03:10)
[2016-02-05] MEDS ORDERED: METHADONE HCL 10 MG TABLET ONE (03:10)
[2016-02-05] MEDS: METHADONE 80 MG, METHADONE 30 MG PO SCH (06:20)
[2016-02-05] MEDS: DOCUSATE SODIUM 100 MG CAPSULE (FP) PO SCH ×3 (06:21→21:07)
[2016-02-05] MEDS: LIDOCAINE 5% TOPICAL PATCH TP SCH (09:31)
[2016-02-05] MEDS: NICOTINE 7 MG/24 HOURS TOPICAL PATCH TD SCH (09:31)
[2016-02-05] MEDS: CITALOPRAM HYDROBROMIDE 10 MG TABLET (FP) PO SCH (09:31)
[2016-02-05] MEDS: PRENATAL VITAMINS W/ FOLIC ACID TABLET (FP) PO SCH (09:31)
[2016-02-05] MEDS: POLYETHYLENE GLYCOL 3350 119 GM BTL PO SCH (09:32)
[2016-02-05] MEDS: QUEtiapine FUMARATE 200 MG TABLET PO SCH ×2 (09:33→21:06)
[2016-02-05] MEDS: NICOTINE POLACRILEX 2 MG GUM BUC PRN (14:42)
[2016-02-05] MEDS: hydrOXYzine PAMOATE 50 MG CAPSULE (FP) PO PRN ×2 (14:42→21:07)
[2016-02-05] MEDS: traZODone HCL 50 MG TABLET (FP) PO SCH (21:06)
[2016-02-05] MEDS: THIAMINE HCL 100 MG TABLET (FP) PO SCH (21:07)
[2016-02-05] MEDS: ARIPiprazole 5 MG TABLET (FP) PO SCH (21:07)
[2016-02-06] MEDS ORDERED: METHADONE HCL 10 MG TABLET ONE (03:14)
[2016-02-06] MEDS ORDERED: METHADONE HCL 40 MG DISPERSABLE TABLET ONE (03:14)
[2016-02-06] MEDS: METHADONE 80 MG, METHADONE 30 MG PO SCH (06:34)
[2016-02-06] MEDS: DOCUSATE SODIUM 100 MG CAPSULE (FP) PO SCH ×3 (06:35→21:09)
[2016-02-06] MEDS: POLYETHYLENE GLYCOL 3350 119 GM BTL PO SCH (09:59)
[2016-02-06] MEDS: CITALOPRAM HYDROBROMIDE 10 MG TABLET (FP) PO SCH (10:00)
[2016-02-06] MEDS: PRENATAL VITAMINS W/ FOLIC ACID TABLET (FP) PO SCH (10:00)
[2016-02-06] MEDS: QUEtiapine FUMARATE 200 MG TABLET PO SCH ×2 (10:00→21:09)
[2016-02-06] MEDS: LIDOCAINE 5% TOPICAL PATCH TP SCH (10:00)
[2016-02-06] MEDS: NICOTINE 7 MG/24 HOURS TOPICAL PATCH TD SCH (10:01)
[2016-02-06] MEDS: traZODone HCL 50 MG TABLET (FP) PO SCH (21:09)
[2016-02-06] MEDS: THIAMINE HCL 100 MG TABLET (FP) PO SCH (21:09)
[2016-02-06] MEDS: ARIPiprazole 5 MG TABLET (FP) PO SCH (21:09)
[2016-02-07] MEDS ORDERED: METHADONE HCL 40 MG DISPERSABLE TABLET ONE (03:31)
[2016-02-07] MEDS ORDERED: METHADONE HCL 10 MG TABLET ONE (03:31)
[2016-02-07] MEDS: DOCUSATE SODIUM 100 MG CAPSULE (FP) PO SCH ×3 (06:24→21:17)
[2016-02-07] MEDS ORDERED: METHADONE HCL 10 MG TABLET PO ONE (06:24)
[2016-02-07] MEDS: METHADONE 80 MG, METHADONE 30 MG PO SCH (07:06)
[2016-02-07] MEDS: POLYETHYLENE GLYCOL 3350 119 GM BTL PO SCH (10:05)
[2016-02-07] MEDS: NICOTINE 7 MG/24 HOURS TOPICAL PATCH TD SCH (10:06)
[2016-02-07] MEDS: LIDOCAINE 5% TOPICAL PATCH TP SCH (10:06)
[2016-02-07] MEDS: QUEtiapine FUMARATE 200 MG TABLET PO SCH ×2 (10:07→21:17)
[2016-02-07] MEDS: PRENATAL VITAMINS W/ FOLIC ACID TABLET (FP) PO SCH (10:07)
[2016-02-07] MEDS: CITALOPRAM HYDROBROMIDE 10 MG TABLET (FP) PO SCH (10:07)
[2016-02-07] MEDS: MAGNESIUM CITRATE 300 ML BOTTLE PO PRN (10:08)
[2016-02-07] MEDS: THIAMINE HCL 100 MG TABLET (FP) PO SCH (21:16)
[2016-02-07] MEDS: ARIPiprazole 5 MG TABLET (FP) PO SCH (21:17)
[2016-02-07] MEDS: traZODone HCL 50 MG TABLET (FP) PO SCH (21:17)
[2016-02-07] MEDS: diphenhydrAMINE HCL 50 MG CAPSULE PO PRN (21:17)
[2016-02-08] MEDS ORDERED: METHADONE HCL 40 MG DISPERSABLE TABLET ONE (05:53)
[2016-02-08] MEDS ORDERED: METHADONE HCL 10 MG TABLET ONE (05:53)
[2016-02-08] MEDS ORDERED: METHADONE HCL 10 MG TABLET PO SCH (06:00)
[2016-02-08] MEDS: METHADONE 80 MG, METHADONE 30 MG PO SCH (07:00)
[2016-02-08] MEDS: DOCUSATE SODIUM 100 MG CAPSULE (FP) PO SCH ×3 (07:00→21:17)
[2016-02-08] MEDS: SODIUM PHOSPHATE/NA BIPHOS 133 ML ENEMA PR PRN (08:37)
[2016-02-08] MEDS: LIDOCAINE 5% TOPICAL PATCH TP SCH (10:28)
[2016-02-08] MEDS: CITALOPRAM HYDROBROMIDE 10 MG TABLET (FP) PO SCH (10:29)
[2016-02-08] MEDS: PRENATAL VITAMINS W/ FOLIC ACID TABLET (FP) PO SCH (10:29)
[2016-02-08] MEDS: QUEtiapine FUMARATE 200 MG TABLET PO SCH ×2 (10:29→21:18)
[2016-02-08] MEDS: NICOTINE 7 MG/24 HOURS TOPICAL PATCH TD SCH (10:30)
[2016-02-08] MEDS: POLYETHYLENE GLYCOL 3350 119 GM BTL PO SCH (10:30)
[2016-02-08] MEDS: NICOTINE POLACRILEX 2 MG GUM BUC PRN (10:32)
[2016-02-08] MEDS: THIAMINE HCL 100 MG TABLET (FP) PO SCH (21:17)
[2016-02-08] MEDS: ARIPiprazole 5 MG TABLET (FP) PO SCH (21:18)
[2016-02-08] MEDS: traZODone HCL 50 MG TABLET (FP) PO SCH (21:18)
[2016-02-09] MEDS ORDERED: METHADONE HCL 40 MG DISPERSABLE TABLET ONE (03:08)
[2016-02-09] MEDS ORDERED: METHADONE HCL 10 MG TABLET ONE (03:08)
[2016-02-09] MEDS: METHADONE 80 MG, METHADONE 30 MG PO SCH (06:29)
[2016-02-09] MEDS: DOCUSATE SODIUM 100 MG CAPSULE (FP) PO SCH ×3 (06:30→21:06)
[2016-02-09] MEDS: CITALOPRAM HYDROBROMIDE 10 MG TABLET (FP) PO SCH (10:04)
[2016-02-09] MEDS: QUEtiapine FUMARATE 200 MG TABLET PO SCH ×2 (10:04→21:06)
[2016-02-09] MEDS: PRENATAL VITAMINS W/ FOLIC ACID TABLET (FP) PO SCH (10:04)
[2016-02-09] MEDS: NICOTINE 7 MG/24 HOURS TOPICAL PATCH TD SCH (10:05)
[2016-02-09] MEDS: LIDOCAINE 5% TOPICAL PATCH TP SCH (10:05)
[2016-02-09] MEDS: POLYETHYLENE GLYCOL 3350 119 GM BTL PO SCH (10:05)
[2016-02-09] MEDS: hydrOXYzine PAMOATE 50 MG CAPSULE (FP) PO PRN (15:48)
[2016-02-09] MEDS: traZODone HCL 50 MG TABLET (FP) PO SCH (21:06)
[2016-02-09] MEDS: ARIPiprazole 5 MG TABLET (FP) PO SCH (21:06)
[2016-02-09] MEDS: THIAMINE HCL 100 MG TABLET (FP) PO SCH (21:06)
[2016-02-09] MEDS: diphenhydrAMINE HCL 50 MG CAPSULE PO PRN (21:07)
[2016-02-10] MEDS ORDERED: METHADONE HCL 10 MG TABLET ONE (03:16)
[2016-02-10] MEDS ORDERED: METHADONE HCL 40 MG DISPERSABLE TABLET ONE (03:16)
[2016-02-10] MEDS: DOCUSATE SODIUM 100 MG CAPSULE (FP) PO SCH ×3 (06:06→21:25)
[2016-02-10] MEDS: METHADONE 80 MG, METHADONE 30 MG PO SCH (06:06)
[2016-02-10] MEDS: PRENATAL VITAMINS W/ FOLIC ACID TABLET (FP) PO SCH (10:10)
[2016-02-10] MEDS: LIDOCAINE 5% TOPICAL PATCH TP SCH (10:10)
[2016-02-10] MEDS: QUEtiapine FUMARATE 200 MG TABLET PO SCH ×2 (10:10→21:25)
[2016-02-10] MEDS: CITALOPRAM HYDROBROMIDE 10 MG TABLET (FP) PO SCH (10:10)
[2016-02-10] MEDS: POLYETHYLENE GLYCOL 3350 119 GM BTL PO SCH (10:12)
[2016-02-10] MEDS: NICOTINE 7 MG/24 HOURS TOPICAL PATCH TD SCH (10:14)
[2016-02-10] MEDS: SODIUM PHOSPHATE/NA BIPHOS 133 ML ENEMA PR PRN (10:15)
[2016-02-10] MEDS: NICOTINE POLACRILEX 2 MG GUM BUC PRN (10:15)
[2016-02-10] MEDS ORDERED: ONDANSETRON *ODT* 4 MG TABLET SL ONE (14:51)
[2016-02-10] MEDS ORDERED: ONDANSETRON *ODT* 4 MG TABLET SL PRN (14:51)
[2016-02-10] MEDS: diphenhydrAMINE HCL 50 MG CAPSULE PO PRN (21:25)
[2016-02-10] MEDS: ARIPiprazole 5 MG TABLET (FP) PO SCH (21:25)
[2016-02-10] MEDS: traZODone HCL 50 MG TABLET (FP) PO SCH (21:25)
[2016-02-10] MEDS: THIAMINE HCL 100 MG TABLET (FP) PO SCH (21:27)
[2016-02-11] MEDS ORDERED: METHADONE HCL 10 MG TABLET ONE (03:06)
[2016-02-11] MEDS ORDERED: METHADONE HCL 40 MG DISPERSABLE TABLET ONE (03:06)
[2016-02-11] MEDS: METHADONE 80 MG, METHADONE 30 MG PO SCH (06:03)
[2016-02-11] MEDS: DOCUSATE SODIUM 100 MG CAPSULE (FP) PO SCH (06:03)
[2016-02-11 06:35] VITALS: BP 109/71; PULSE 82; TEMP 97.9
--- NOTE | 2016-02-11 13:14 | PN ---
Psychiatric Progress Note Vital Signs: Vital Signs Period Temp Pulse Resp BP Sys/Crow Pulse Ox Last 24 Hr 97.9 F 82 18-18 109/71 Date of Session: 02/10/16 Chief Complaint:: Discharge visit HPI: Patient addressed Alcohol,Cocaine and Opioid dependence comorbid with Bipolar II disorder. ROS: Significant for Hep C,GERD,BA. Current Side Effect: No Lab tests ordered: No Lab tests reviewed: Yes Provider note:: Patient will complete this program tomorrow 02/11/16.She has met her treatment goals and will continue to addres nher issues on otpatient basis at [facility].Patient continue to find that current medications (Seroquel 200 mg po bid,Celexa 10 mg po daily,Abilify 5 mg po daily, Trazodone 50 mg po hs) help to reduce her anxiety and mood instability, depression.Scripts for 30 days provided. Supportive therapy provided focusing on relapse prevention including coping skills ,support system utilization to maintain recovery. Patient is stable for discharge tomorrow 02/11/16. Total face to face time:: 30 Mental Status Exam - Mental Status Exam Alert and Oriented to: Time, Place, Person Cognitive Function: Grossly Intact Patient Appearance: Well Groomed Mood: Euthymic Affect: Appropriate, Mood Congruent Patient Behavior: Cooperative Speech Pattern: Clear Voice Loudness: Normal Thought Process: Goal Oriented Thought Disorder: Not Present Hallucinations: Denies Suicidal Ideation: Denies Homicidal Ideation: Denies Insight/Judgement: Fair Sleep: Fair Appetite: Fair Muscle strength/Tone: Normal Gait/Station: Normal Psychiatric Treatment Plan - Problem List (3) GERD (gastroesophageal reflux disease) Qualifiers: Esophagitis presence: with esophagitis Qualified Code(s): K21.0 - Gastro-esophageal reflux disease with esophagitis (4) Hepatitis C Qualifiers: Viral hepatitis chronicity: chronic Hepatic coma status: without hepatic coma Qualified Code(s): B18.2 - Chronic viral hepatitis C (7) Asthma Qualifiers: Asthma severity: mild intermittent Asthma complication type: uncomplicated Qualified Code(s): J45.20 - Mild intermittent asthma, uncomplicated
== END 2016-02-11 07:09 | disposition home or self-care (01) | DRG 772 ==
LOC: YASAS 15:16 → Y3E 15:17
PROVIDERS: ADMIT Psychiatry & Neurology Psychiatry; ATTEND Psychiatry & Neurology Psychiatry
PROC: HZ42ZZZ Group Counseling for Substance Abuse Treatment, Cognitive-Behavioral (ICD-10-PCS; principal; 2016-01-18)
DX: F10.20 Alcohol dependence, uncomplicated (principal); F11.20 Opioid dependence, uncomplicated; F13.20 Sedative, hypnotic or anxiolytic dependence, uncomplicated; F14.20 Cocaine dependence, uncomplicated; F17.210 Nicotine dependence, cigarettes, uncomplicated; F31.81 Bipolar II disorder; B18.2 Chronic viral hepatitis C; K21.0 Gastro-esophageal reflux disease with esophagitis; J45.20 Mild intermittent asthma, uncomplicated; Z86.69 Personal history of other diseases of the nervous system and sense organs; M25.512 Pain in left shoulder
CPT/HCPCS: 90732; G0009